=== PATIENT | female | born 1970 | race Caucasian/White ===

== ENCOUNTER 2019-05-22 13:24 | Emergency (ER) | payer BC, OTHER ==
[~2019-05-22 13:24] MED LIST: CIPRODEX OTIC7.5 ML OT; NOHOMEMEDICATIONS
[2019-05-22] MEDS ORDERED: ERYTHROMYCIN E3.5 G3 OPHTHALMIC (15:02)
== END 2019-05-22 15:46 | disposition home or self-care (01) ==
LOC: ER 13:24
DX: H57.12 Ocular pain, left eye (principal); Z90.89 Acquired absence of other organs; Z98.890 Other specified postprocedural states